=== PATIENT | female | born 1930 | race Caucasian/White ===

== ENCOUNTER 2016-05-26 17:24 | Observation (INO) | payer MEDICARE, OTHER ==
[2016-05-26 17:50] LABS: BASO % 0.4 % (0.1-1.2); EOS % 0.2 % (0.7-5.8); GRAN % 65.2 % (34.0-71.1); HEMATOCRIT 38.5 % (34-45); HEMOGLOBIN 13.7 g/dL (11.2-15.7); LYMPH # 1.2 10_X3_uL (1.2-3.7); LYMPH % 26.1 % (19.3-51.7); MEAN CORPUSCULAR HEMOGLOBIN 30.8 pg (27.0-33.0); MEAN CORPUSCULAR HGB CONC 35.6 g/dL (32.0-36.0); MEAN CORPUSCULAR VOLUME 86.5 fL (79-95); MEAN PLATELET VOLUME 11.1 fl (7.5-11.5); MONO # 0.4 10_X3_uL (0.2-0.9); MONO % 8.1 % (4.7-12.5); PLATELET COUNT 138 x10_3/uL (182-369); RED BLOOD COUNT 4.45 x10_6/uL (3.9-5.2); RED CELL DISTRIBUTION WIDTH 13.4 % (11.7-14.4); WHITE BLOOD COUNT 4.6 x10_3/uL (4.0-10.0)
[2016-05-26 18:04] LABS: BLOOD UREA NITROGEN 13 mg/dL (7-18); CALCIUM 9.4 mg/dL (8.7-10.7); CARBON DIOXIDE 25 mmol/L (21-32); CREATININE < 0.5 mg/dL (0.6-1.3); GLUCOSE,RANDOM 90 mg/dL (70-99); POTASSIUM 3.4 mmol/L (3.5-5.1); SODIUM 139 mmol/L (136-145)
[2016-05-26 18:58] LABS: URINE BILIRUBIN NEGATIVE (NEGATIVE); URINE BLOOD TRACE (NEGATIVE); URINE GLUCOSE (UA) NORMAL (NORMAL); URINE KETONE 2+ (NEGATIVE); URINE LEUKOCYTE ESTERASE NEGATIVE (NEGATIVE); URINE NITRATE NEGATIVE (NEGATIVE); URINE PROTEIN NEGATIVE (NEGATIVE); UROBILINOGEN NORMAL mg/dL (<1.0)
[2016-05-26 19:26] LABS: URINE RBC 0-5 /[HPF] (0-2)
[2016-05-26 19:27] LABS: URINE BACTERIA TRACE (NONE SEEN); URINE SQUAMOUS EPITHELIAL CELL 0-10 /[HPF] (NONE SEEN); URINE WBC 0-5 /[HPF] (0-5)
[2016-05-27 06:42] LABS: BLOOD UREA NITROGEN 12 mg/dL (7-18); CARBON DIOXIDE 23 mmol/L (21-32); CREATININE < 0.5 mg/dL (0.6-1.3); GLUCOSE,RANDOM 81 mg/dL (70-99); POTASSIUM 3.3 mmol/L (3.5-5.1); SODIUM 139 mmol/L (136-145)
[2016-05-27 07:04] LABS: HEMATOCRIT 35.2 % (34-45); HEMOGLOBIN 12.2 g/dL (11.2-15.7); MEAN CORPUSCULAR HEMOGLOBIN 30.2 pg (27.0-33.0); MEAN CORPUSCULAR HGB CONC 34.7 g/dL (32.0-36.0); MEAN CORPUSCULAR VOLUME 87.1 fL (79-95); MEAN PLATELET VOLUME 11.5 fl (7.5-11.5); RED BLOOD COUNT 4.04 x10_6/uL (3.9-5.2); RED CELL DISTRIBUTION WIDTH 13.2 % (11.7-14.4); WHITE BLOOD COUNT 4.6 x10_3/uL (4.0-10.0)
[2016-05-27 15:36] LABS: CALCIUM 8.7 mg/dL (8.7-10.7)
[2016-05-28 06:29] LABS: HEMATOCRIT 34.5 % (34-45); HEMOGLOBIN 11.9 g/dL (11.2-15.7); MEAN CORPUSCULAR HEMOGLOBIN 30.5 pg (27.0-33.0); MEAN CORPUSCULAR HGB CONC 34.5 g/dL (32.0-36.0); MEAN CORPUSCULAR VOLUME 88.5 fL (79-95); MEAN PLATELET VOLUME 11.2 fl (7.5-11.5); RED BLOOD COUNT 3.9 x10_6/uL (3.9-5.2); RED CELL DISTRIBUTION WIDTH 13.5 % (11.7-14.4); WHITE BLOOD COUNT 4.4 x10_3/uL (4.0-10.0)
[2016-05-28 06:46] LABS: CALCIUM 8.8 mg/dL (8.7-10.7); CARBON DIOXIDE 27 mmol/L (21-32); CREATININE 0.6 mg/dL (0.6-1.3); GLUCOSE,RANDOM 106 mg/dL (70-99); POTASSIUM 3.8 mmol/L (3.5-5.1); SODIUM 141 mmol/L (136-145)
[2016-05-28 06:47] LABS: BLOOD UREA NITROGEN 19 mg/dL (7-18)
== END 2016-05-28 15:39 | disposition short-term general hospital (02) ==
LOC: ER 17:24 → MS 19:44
PROVIDERS: General Practice; ADMIT Family Medicine
DX: R53.1 Weakness (principal); R41.0 Disorientation, unspecified; N39.0 Urinary tract infection, site not specified; F03.90 Unspecified dementia, unspecified severity, without behavioral disturbance, psychotic disturbance, mood disturbance, and anxiety; I10 Essential (primary) hypertension; D51.0 Vitamin B12 deficiency anemia due to intrinsic factor deficiency; J30.2 Other seasonal allergic rhinitis; M62.50 Muscle wasting and atrophy, not elsewhere classified, unspecified site; G31.9 Degenerative disease of nervous system, unspecified; M51.34 Other intervertebral disc degeneration, thoracic region; J84.9 Interstitial pulmonary disease, unspecified; M51.26 Other intervertebral disc displacement, lumbar region; Z88.6 Allergy status to analgesic agent; Z88.0 Allergy status to penicillin; Z91.011 Allergy to milk products; Z79.899 Other long term (current) drug therapy
CPT/HCPCS: 36415; 70450; 71010; 72128; 72131; 80048; 81001; 82962; 85025; 96372; 99284; 99285-25; G0378